=== PATIENT | male | born 1995 | race Two or more races ===

== ENCOUNTER 2024-01-10 19:50 | Emergency (ER) | payer MEDICAID, OTHER ==
[~2024-01-10] VITALS: Ht 185.4 cm; Wt 105.4 kg
[2024-01-10 22:18] VITALS: BP 125/74; PULSE 85; RESP 18; TEMP 98.2; O2SAT 95
[2024-01-10] MEDS ORDERED: IBUP-1455 PO (22:18)
[2024-01-10] MEDS: IBUPROFEN 800 MG TAB PO ONE (22:27)
== END 2024-01-10 22:28 | disposition home or self-care (01) ==
LOC: ER 19:50
DX: S93.491A Sprain of other ligament of right ankle, initial encounter (principal); X50.1XXA Overexertion from prolonged static or awkward postures, initial encounter; Y93.66 Activity, soccer; Y92.89 Other specified places as the place of occurrence of the external cause; Y99.8 Other external cause status
CPT/HCPCS: 29515; 73610